=== PATIENT | female | born 1990 | race African-American/Black ===

== ENCOUNTER 2017-05-29 17:54 | Emergency (ER) | payer OTHER ==
[~2017-05-29] VITALS: Ht 170.2 cm; Wt 133.8 kg
--- NOTE | ~2017-05-29 | CR63 ---
[facility] A Service of [facility] & [facility] RADIOLOGY TEXT RESULTS PATIENT: FAB SOLIMAN LOCATION: CFTX : 89 UNIT #: [id number] AGE: [address]: Evelyn Oden APRN SEX: F ORDER DR: [id number] [facility] [address] [place], [place] [address] [id number] E MR#: [id number] Acc #: [id number] NAME: FAB SOLIMAN : 1990 SEX: F STUDY DATE/TIME: 05/29/2017 18:41 UNIT: [facility] ROOM: STUDY DESCRIPTION: CR Chest 2 View Attending Physician: Evelyn Oden A.P.R.N. Ordering Physician: Juan Luis Lara R.N. MEDICAL IMAGING REPORT This report is preliminary unless electronic signature is present EXAM Two-view chest HISTORY Cough, congestion, shortness of air x3 days. COMPARISON 02/28/2017. FINDINGS 2 views of the chest demonstrate low lung volumes. Cardiomegaly with mild pulmonary vascular congestion. No interstitial alveolar edema. No effusions. Pacemaker noted. No pneumothorax. Osseous structures unremarkable. IMPRESSION Cardiomegaly with mild pulmonary vascular congestion but no overt failure. Pacemaker leads noted. Dictated by... Garrett Jama M.D. THIS IS AN ELECTRONICALLY VERIFIED REPORT Garrett Jama M.D. at 05/30/2017 2:05 PM DEVIN/olaf TD: 05/29/2017 21:54 JOB #: [id number] MEDICAL IMAGING REPORT Page 1 of 1 COPY
[~2017-05-29 17:54] MED LIST: BACTRIM DS TABL1 TA1 PO; LORTAB 5/500 TA1 TA1 PO; NAPROSYN500 MG PO; PHENERGAN25 MG PO; ZANTAC150 MG PO
== END 2017-05-29 19:53 | disposition home or self-care (01) ==
LOC: CED 17:54 → CFTX 17:54
DX: J20.9 Acute bronchitis, unspecified (principal); J02.9 Acute pharyngitis, unspecified; I10 Essential (primary) hypertension; J45.909 Unspecified asthma, uncomplicated; F17.210 Nicotine dependence, cigarettes, uncomplicated; Z90.49 Acquired absence of other specified parts of digestive tract; Z79.899 Other long term (current) drug therapy
CPT/HCPCS: 71020; 84703; 87651; 94640; 99283